=== PATIENT | female | born 2000 | race Caucasian/White ===

== ENCOUNTER 2023-05-12 19:06 | Emergency (ER) | payer OTHER ==
[2023-05-12 19:29] VITALS: BP 120/72; PULSE 100; RESP 16; TEMP 98.8; BMI 20.7
[2023-05-12] MEDS ORDERED: ACETAMINOPHEN 325 MG TABLET (FP) ONE (19:54)
[2023-05-12] MEDS: ACETAMINOPHEN 325 MG TABLET (FP) PO ONE (19:56)
== END 2023-05-12 22:14 | disposition home or self-care (01) ==
LOC: FER 19:06
DX: M79.661 Pain in right lower leg (principal)
CPT/HCPCS: 93971-TC; 99284-25